=== PATIENT | female | born 1950 | race Caucasian/White ===

== ENCOUNTER 2020-01-12 19:21 | Emergency (ER) | payer OTHER, SELFPAY ==
[2020-01-12 19:27] VITALS: BP 168/81; PULSE 82; RESP 18; TEMP 36.6; O2SAT 99
--- NOTE | 2020-01-12 19:35 | DI.RAD.S_ITS ---
PROCEDURE: XR SHOULDER LT MIN 2V INDICATIONS: fell,thinks dislocation TECHNIQUE: 3 views of the shoulder were acquired. COMPARISON: None. FINDINGS: Bones: Comminuted fracture of the humeral head is noted. Soft tissues: No suspicious soft tissue calcifications. IMPRESSION: Comminuted humeral head fracture. Dictated by: Candelaria Rodas MD, PhD on 01/12/2020 at 19:53 Approved by: Candelaria Rodas MD, PhD on 01/12/2020 at 19:53
--- NOTE | 2020-01-12 20:19 | PC.NURSE ---
Pt denies LOC with fall. Hit her head with contusion forming on left forehead. Not bleeding. Not on blood thinners. Denies any vision changes or headache
[2020-01-12] MEDS: OXYCODONE/APAP 5/325 PREPACK 1 BOTTLE MISC (20:41)
[2020-01-12] MEDS: ONDANSETRON 4 MG ODT PREPACK 1 BOTTLE MISC (20:41)
[2020-01-12 20:42] VITALS: BP 176/86; PULSE 73; RESP 16; O2SAT 98
--- NOTE | 2020-01-13 02:44 | ED.UPPEXIN ---
HPI - Extremity Injury (Upper) General Chief Complaint: Extremity Injury, Upper Stated Complaint: hiking, fall, hit face, L shldr thinks dislocated Time Seen by Provider: 01/12/20 19:32 Source: patient Mode of arrival: Ambulatory Limitations: no limitations History of Present Illness HPI narrative: 69F non smoker without significant medical history presents with her and the chief complaint of left shoulder injury earlier today. She was walking on a trail and fell onto her shoulder. She complains of severe pain and swelling. She felt it pop and questions whether or not it was dislocated and has now popped back into place. She denies numbness, tingling or weakness. She hit her head and has a small contusion on her forehead. She denies loss of consciousness Related Data Previous Rx's Medication Instructions Recorded ondansetron 4 mg PO TID-QID PRN #10 tab 01/12/20 oxycodone 5 mg PO Q4-6H PRN #30 tab 01/12/20 Allergies Allergy/AdvReac Type Severity Reaction Status Date / Time No Known Drug Allergies Allergy Verified 01/12/20 20:49 Review of Systems Constitutional Constitutional: Denies chills, Denies fatigue, Denies fever(s), Denies frequent falls, Denies lethargy and Denies weakness Eyes Eyes: Denies change in vision, Denies eye discharge, Denies irritation and Denies loss of vision ENT Ears, Nose, Mouth, and Throat: Denies change in voice, Denies dizziness, Denies neck pain, Denies sore throat and Denies throat swelling Cardiovascular Cardiovascular: Denies chest pain, Denies irregular heart rhythm, Denies lightheadedness, Denies palpitations, Denies dyspnea, Denies dyspnea on exertion and Denies orthopnea Respiratory Respiratory: Denies cough, Denies dyspnea, Denies dyspnea on exertion and Denies wheezing Gastrointestinal Gastrointestinal: Denies abdominal pain, Denies change in bowel habits, Denies diarrhea, Denies nausea and Denies vomiting Musculoskeletal Musculoskeletal: Reports arthralgias, Reports joint swelling, Reports limited range of motion, Denies neck pain and Denies numbness Integumentary/Breasts Skin/Breast: Denies pruritus, Denies erythema, Denies rash and Denies wounds Neurologic Neurologic: Denies behavioral changes, Denies confusion, Denies dizziness, Denies frequent falls, Denies loss of vision, Denies numbness and Denies weakness Psychiatric Psychiatric: Denies anxiety, Denies behavioral changes, Denies confusion, Denies depression, Denies homicidal ideation and Denies suicidal ideation Endocrine Endocrine: Denies fatigue, Denies flushing and Denies palpitations Hematologic/Lymphatic Hematologic/Lymphatic: Denies easy bruising Allergic/Immunologic Allergic/Immunologic: Denies urticaria, Denies throat swelling and Denies wheezing Patient History Social History Smoking Status: Never smoker Smoking Status: Never smoker alcohol intake frequency: a few times a month Substance Use Type: marijuana Exam Narrative Exam Narrative: GENERAL: [69] year old patient appears stated age. Well-nourished, well-developed patient, in obvious distress, splinting her left shoulder. GCS 15 HEAD: 2cm contusion on left forehead, no evidence of depressed skull fracture EYES: Pupils equal round and reactive. Extraocular motions intact. No scleral icterus. No injection or drainage. ENT: Nose without bleeding, purulent drainage. Throat without erythema, tonsillar hypertrophy or exudate. Airway patent. NECK: Trachea midline. Non tender CARDIOVASCULAR: Regular rate and rhythm without murmurs, gallops, or rubs. RESPIRATORY: Clear to auscultation. Breath sounds equal bilaterally. No wheezes, rales, or rhonchi. GASTROINTESTINAL: Abdomen soft, non-tender, nondistended. EXTREMITIES: Left shoulder with decreased range of motion secondary to pain, noted swelling, closed, isolated neurovascularly intact, no pain in wrist or elbow. BACK: Nontender without deformity or crepitance. No flank tenderness. NEURO: AOx3. SKIN: No rash or erythema of visible areas Initial Vital Signs Initial Vital Signs: Vital Signs Temperature 97.8 F 01/12/20 19:27 Pulse Rate 82 01/12/20 19:27 Respiratory Rate 18 01/12/20 19:27 Blood Pressure 168/81 H 01/12/20 19:27 Pulse Oximetry 99 01/12/20 19:27 Procedures Orthopedic Splinting/Casting Injury #1: Side: left Upper Extremity Injury Location: shoulder Upper Extremity Immobilizer: sling/shoulder immobilizer Post splinting neuro exam: intact Post splinting vascular exam: intact Placed by: Nursing Course Orders Ordered: ED Orders 01/12/20 19:35 XR shoulder LT min 2V Stat Discontinued Medications Ondansetron HCl (Zofran Odt Prepack) 1 bottle MISC SEEINSTR ONE Stop: 01/12/20 20:36 Last Admin: 01/12/20 20:41 Dose: 1 bottle Documented by: KAYA Oxycodone/Acetaminophen (Endocet 5/325 Prepack) 1 bottle MISC SEEINSTR ONE Stop: 01/12/20 20:36 Last Admin: 01/12/20 20:41 Dose: 1 bottle Documented by: KAYA Consultations Consultation #1: discussion with Dr. Merritt ([facility]) recommends sling, pain control, follow up. Vital Signs Vital signs: Vital Signs - 8 hr 01/12/20 19:27 01/12/20 20:42 Temperature 97.8 F Pulse Rate 82 73 Respiratory Rate 18 16 Blood Pressure 168/81 H 176/86 H Pulse Oximetry 99 98 MDM - Extremity Injury (Upper) Imaging Data Extremity x-ray #1: Radiologist's Impression: Shayla Eldridge 69 F [address] [address] XRay Report Signed Patient: Shayla Eldridge WMR#: [id number] : [id number]:[id number] Age/Sex: 69 / FDate of Service: 01/12/20 Loc: ED Accession Number: [id number] Procedure: XR shoulder LT min 2V Ordering Provider: Neno Sloan D.O. PROCEDURE: XR SHOULDER LT MIN 2V INDICATIONS: fell,thinks dislocation TECHNIQUE: 3 views of the shoulder were acquired. COMPARISON: None. FINDINGS: Bones: Comminuted fracture of the humeral head is noted. Soft tissues: No suspicious soft tissue calcifications. IMPRESSION: Comminuted humeral head fracture. Dictated by: Candelaria Rodas MD, PhD on 01/12/2020 at 19:53 Approved by: Candelaria Rodas MD, PhD on 01/12/2020 at 19:53 Discharge Plan Departure Patient Disposition: Home Clinical Impression: Fracture of proximal end of humerus Qualifiers: Encounter type: initial encounter Fracture type: closed Fracture morphology: other fracture Fracture alignment: nondisplaced Laterality: left Qualified Code(s): S42.295A - Other nondisplaced fracture of upper end of left humerus, initial encounter for closed fracture Discharge Date/Time: 01/12/20 20:42 Instructions: DI for Shoulder Fracture Activity Restrictions/Additional Instructions: *You have been diagnosed with [left proximal humerus fracture] *What to do: *Take medications as directed *Follow up with [facility], call in the morning for an appointment. Let them know you were seen in the Emergency Department and that we ask that you be seen in follow up. Also, I've given you contact info for our orthopedist mission worker should you choose to follow up with him. *Return to ER if you should have any new, worsening or concerning symptoms Prescriptions: New ondansetron 4 mg tablet,disintegrating 4 mg PO TID-QID PRN (Reason: nausea and vomiting) Qty: 10 RF: 0 oxycodone 5 mg tablet 5 mg PO Q4-6H PRN (Reason: pain) Qty: 30 RF: 0 Referrals: Arian Merritt MD [Physician] -
== END 2020-01-12 20:42 | disposition home or self-care (01) ==
PROVIDERS: Emergency Provider Emergency Medicine
DX: S42.295A Other nondisplaced fracture of upper end of left humerus, initial encounter for closed fracture (principal); W01.0XXA Fall on same level from slipping, tripping and stumbling without subsequent striking against object, initial encounter
CPT/HCPCS: 73030; 99283